=== PATIENT | female | born 1985 | race Caucasian/White ===

== ENCOUNTER 2018-12-19 12:35 | Inpatient (IN) | payer BC ==
[~2018-12-19] VITALS: Ht 167.6 cm; Wt 89.8 kg
[2018-12-19] MEDS ORDERED: ROPIVACAINE 0.2% 100 ML ONE ×2 (13:21→18:43)
[2018-12-19] MEDS ORDERED: fentaNYL CITRATE/PF 100 MCG/2 ML AMP ONE ×2 (13:21→18:43)
[2018-12-19] MEDS ORDERED: LR 1,000 ML IV ONE (13:41)
[2018-12-19] MEDS ORDERED: OXYTOCIN/0.9 % SODIUM CHLORIDE 1,000 ML IV SCH ×2 (13:41→22:30)
[2018-12-19] MEDS: LR 1,000 ML IV SCH ×2 (13:45→21:41)
[2018-12-19] MEDS ORDERED: NALBUPHINE HCL 10 MG/ML AMP IVP PRN (13:45)
[2018-12-19] MEDS ORDERED: TERBUTALINE SULFATE 1 MG/ML VIAL SUBCUT ONE (13:45)
[2018-12-19 14:32] LABS: BASOPHILS # (AUTO) 0.1 K/uL (0.0-0.2); BASOPHILS % (AUTO) 0.5 % (0.0-2.0); EOSINOPHILS # (AUTO) 0.2 K/uL (0.0-0.4); EOSINOPHILS % (AUTO) 1.3 % (0.0-4.0); LYMPHOCYTES % (AUTO) 17.1 % (20.5-51.5); MEAN CORPUSCULAR HEMOGLOBIN 30 pg (27-31); MEAN CORPUSCULAR HGB CONC 33 % (32-36); MEAN CORPUSCULAR VOLUME 90 fL (79.0-98.0); MONOCYTES # (AUTO) 0.6 K/uL (0.0-1.0); MONOCYTES % (AUTO) 4.9 % (1.7-9.3); NEUTROPHILS # (AUTO) 8.8 K/uL (1.8-7.7); NEUTROPHILS % (AUTO) 76.2 % (40.0-70.0); PLATELET COUNT (AUTO) 256 K/uL (130-430); RED BLOOD CELL COUNT(AUTO) 4.36 MIL/uL (4.2-6.2); RED CELL DISTRIBUTION WIDTH 12.7 % (9.0-15.0); WHITE BLOOD COUNT (AUTO) 11.7 K/uL (4.8-10.8)
[2018-12-19 17:54] VITALS: BP_SYST 127
[2018-12-19] MEDS ORDERED: ONDANSETRON HCL 4 MG/2 ML VIAL IVP PRN (19:00)
[2018-12-19] MEDS ORDERED: METOCLOPRAMIDE HCL 10 MG/2 ML VIAL IVP ONE (19:00)
[2018-12-19] MEDS ORDERED: ONDANSETRON HCL 4 MG/2 ML VIAL ONE (19:11)
[2018-12-19] MEDS ORDERED: LR 500 ML IV ONE (19:17)
[2018-12-19] MEDS ORDERED: FENT2mCg/mL-ROPIVA0.2%/NS EPID 150 ML EP SCH (19:30)
[2018-12-19] MEDS ORDERED: TEMAZEPAM 15 MG CAPSULE PO PRN (21:00)
[2018-12-19] MEDS ORDERED: METHYLERGONOVINE MALEATE 0.2 MG TABLET PO PRN (22:30)
[2018-12-19] MEDS ORDERED: DOCUSATE SODIUM 100 MG CAPSULE PO PRN (22:30)
[2018-12-19] MEDS ORDERED: RHO(D) IMMUNE GLOBULIN/MALTOSE 1500 UNITS/1.3 ML (WINHRO) IM PRN (22:30)
[2018-12-19] MEDS ORDERED: OXYTOCIN/0.9 % SODIUM CHLORIDE 1,000 ML IV ONE (22:30)
[2018-12-19] MEDS ORDERED: DIPH-TET-PERTUS Vaccine 0.5 ML VIAL (ADACEL) I.M. PRN (22:30)
[2018-12-19] MEDS ORDERED: DERMOPLAST SPRAY TP PRN (22:30)
[2018-12-19] MEDS ORDERED: HYDROCORTISONE 0.5%, 28.35 GM TOPICAL CREAM TP PRN (22:30)
[2018-12-19] MEDS ORDERED: LANOLIN 7 GM OINT. TP PRN (22:30)
[2018-12-19] MEDS ORDERED: SENNOSIDES/DOCUSATE SODIUM 1 TAB TABLET(SENOKOT-S) PO PRN (22:30)
[2018-12-19] MEDS ORDERED: HYDROcodone/ACETAMIN 5-325 MG TAB (NORCO/ VICODIN) PO PRN (22:30)
[2018-12-19] MEDS ORDERED: MEASLES,MUMPS&RUBELLA VACC/PF 12500 UNIT/0.5 ML VIAL SUBQ PRN (22:30)
[2018-12-19] MEDS ORDERED: ANUSOL 1 EA SUPP.RECT (PREPARATION H) RC PRN (22:30)
[2018-12-19] MEDS ORDERED: WITCH HAZEL LEAF 1 MED.PAD MED.PAD TP PRN (22:30)
[2018-12-19] MEDS ORDERED: OXYCODONE/ACETAMINOPHEN 5-325 TABLET PO PRN (22:30)
[2018-12-20] MEDS: IBUPROFEN 600 MG TABLET PO SCH ×5 (06:27→23:35)
[2018-12-20 06:58] LABS: BASOPHILS % (AUTO) 0.1 % (0.0-2.0); EOSINOPHILS # (AUTO) 0.1 K/uL (0.0-0.4); HEMATOCRIT 34.8 % (36-48); HEMOGLOBIN 11.7 g/dL (12.0-16.0); LYMPHOCYTES # (AUTO) 1.9 K/uL (1.0-5.5); LYMPHOCYTES % (AUTO) 14.4 % (20.5-51.5); MEAN CORPUSCULAR HEMOGLOBIN 30 pg (27-31); MEAN CORPUSCULAR HGB CONC 34 % (32-36); MEAN CORPUSCULAR VOLUME 90 fL (79.0-98.0); MONOCYTES # (AUTO) 0.5 K/uL (0.0-1.0); NEUTROPHILS # (AUTO) 10.4 K/uL (1.8-7.7); NEUTROPHILS % (AUTO) 80.5 % (40.0-70.0); PLATELET COUNT (AUTO) 223 K/uL (130-430); RED BLOOD CELL COUNT(AUTO) 3.85 MIL/uL (4.2-6.2); RED CELL DISTRIBUTION WIDTH 12.8 % (9.0-15.0); WHITE BLOOD COUNT (AUTO) 12.9 K/uL (4.8-10.8)
[2018-12-20] MEDS: OXYCODONE/ACETAMINOPHEN 5-325 TABLET PO PRN ×5 (08:17→22:07)
[2018-12-21] MEDS: IBUPROFEN 600 MG TABLET PO SCH (05:49)
== END 2018-12-21 10:25 | disposition home or self-care (01) | DRG 807 ==
LOC: OBSVTOIN 12:35 → SPU 12:35
PROVIDERS: ADMIT Obstetrics & Gynecology; ATTEND Obstetrics & Gynecology
PROC: 10E0XZZ Delivery of Products of Conception, External Approach (ICD-10-PCS; principal; 2018-12-19)
PROC: 0HQ9XZZ Repair Perineum Skin, External Approach (ICD-10-PCS; 2018-12-19)
PROC: 3E0R3BZ Introduction of Anesthetic Agent into Spinal Canal, Percutaneous Approach (ICD-10-PCS; 2018-12-19)
PROC: 00HU33Z Insertion of Infusion Device into Spinal Canal, Percutaneous Approach (ICD-10-PCS; 2018-12-19)
DX: O69.1XX0 Labor and delivery complicated by cord around neck, with compression, not applicable or unspecified (principal); Z37.0 Single live birth; O70.0 First degree perineal laceration during delivery; Z3A.37 37 weeks gestation of pregnancy
CPT/HCPCS: 36415; 81002-TC; 85025; 86592; 86886; 86900; 86901; J2405; J2590; J2795; J3010; J7120